=== PATIENT | female | born 2000 | race Caucasian/White ===

== ENCOUNTER 2020-10-31 12:59 | Emergency (ER) | payer OTHER ==
[~2020-10-31 12:59] MED LIST: CIPRO500 M1 PO; FLOMAX 0.4 MG0.4 MG PO; FLOMAX0.4 MG PO; IBUPROFEN800 MG PO; KETOROLAC TROME10 MG PO; NIKKI 3 MG-0.01 EACH PO; NORCO 5-325 TA1 EACH PO; PHENERGAN25 M1 PO; PHENERGAN25 MG PR; PROMETHEGA12.5 MG/SU PR; ZOFRAN4 MG PO
[2020-10-31 14:04] LABS: BASOPHIL 0.7 % (0-2); BILIRUBIN NEGATIVE (NEGATIVE); BLOOD 3+ Ery/uL (NEGATIVE); CLARITY CLEAR (CLEAR); COLOR YELLOW (YELLOW); GLUCOSE (U) NORMAL (NORMAL); HCT 42.1 % (37.0-47.0); HGB 14.2 g/dl (12.5-16.0); LEUKOCYTES NEGATIVE Leu/uL (NEGATIVE); LYMPHOCYTE 20.5 % (15-48); MCH 31.3 pg (25.0-31.0); MCHC 33.7 g/dL (32.0-36.0); MCV 92.7 fL (78.0-100.0); MONOCYTE 16.3 % (0-12); MPV 9.5 fL (6.0-9.5); NEUTROPHIL 60.1 % (41-80); NITRITE NEGATIVE (NEGATIVE); NRBC 0; PLT 250 K/uL (150-400); PROTEIN NEGATIVE (NEGATIVE); RBC 4.54 M/uL (4.20-5.40); RDW 12.1 % (11.5-14.0); SPECIFIC GRAVITY 1.025 (1.001-1.030); UROBILINOGEN 0.2 mg/dL (0.2-1.0); WBC 4.5 K/uL (4.0-10.5); pH 6.5 (5.0-9.0)
[2020-10-31 14:34] LABS: BILIRUBIN - TOTAL 0.2 mg/dL (0.2-1.0); BUN/CREAT RATIO (CALC) 20.3 RATIO; CREATININE 0.64 mg/dL (0.51-0.95); GLOBULIN (CALCULATION) 3.6 g/dL; MAGNESIUM 2.1 mg/dL (1.8-2.4); TOTAL PROTEIN 7.6 g/dL (6.4-8.2)
[2020-10-31 14:41] LABS: BACTERIA TRACE
[2020-10-31 14:42] LABS: MUCOUS TRACE; URINARY WBC RARE
[2020-10-31] MEDS ORDERED: IMODIUM2 MG PO (16:12)
[2020-10-31] MEDS ORDERED: BENTYL10 MG PO (16:12)
== END 2020-10-31 16:40 | disposition home or self-care (01) ==
LOC: FER 12:59
PROVIDERS: Emergency Medicine
DX: K62.5 Hemorrhage of anus and rectum (principal); R10.84 Generalized abdominal pain; F17.290 Nicotine dependence, other tobacco product, uncomplicated; Z90.49 Acquired absence of other specified parts of digestive tract
CPT/HCPCS: 36415; 80053; 81001; 83690; 83735; 84145; 85025; J7030; Q9967